=== PATIENT | female | born 1960 | race Caucasian/White ===

== ENCOUNTER → 2023-08-09 09:02 | Outpatient (REF) | payer OTHER, SELFPAY | LOC: HWRAD 09:02 | PROVIDERS: ATTENDING PHYSICIAN Internal Medicine | DX: R10.31 Right lower quadrant pain (principal) | CPT/HCPCS: 74177; Q9967 ==

== ENCOUNTER 2023-08-12 14:31 | Emergency (ER) | payer OTHER, SELFPAY ==
[2023-08-12 14:32] VITALS: BP 158/95
--- NOTE | 2023-08-12 14:54 | ED.GENMED ---
History of Present Illness
General
Chief Complaint: Abdominal Pain
Time Seen by Provider: 08/12/23 14:54
Travel History
Have you had any contact with someone who has COVID-19?: No
Do you have any symptoms of coronavirus? Fever > 100 degrees, chills, cough, shortness of breath, sore throat, loss of taste or smell, muscle aches, or headache?: No
History of Present Illness
History of Present Illness:
HPI: The patient presents with a general unwell feeling in her abdomen associate with constipation and some 'gurgling' at times. She had an outpatient CAT scan that showed 'nonobstructive cecal bascule'. This was ordered by PMD and images were
obtained 3 days ago. The PMD told her to come to the ER today. The patient did have a bowel movement last night and overall feels somewhat improved
EXAM:
GENERAL: Well appearing in no distress
HEENT: Moist oral mucosa
ABDOMEN: Soft with no peritoneal signs, no tenderness
NEUROLOGIC: Excellent strength all extremities, no coordination deficits
PSYCHIATRIC: Appropriate mental status, normal insight and judgement
EXTREMITIES: Nontender, no edema, moves all extremities equally
SKIN: No rash, no lesions
ED COURSE:
3 PM: I initially evaluated patient
NUMBER AND COMPLEXITY OF PROBLEMS ADDRESSED AT THE ENCOUNTER
� Chronic conditions affecting care: IBS, diverticulosis, has had lap elana in 2014, ovarian cysts
� Acute Exacerbation and/or Progression of Chronic Illness: This is an acute problem but is felt similar episodes in the past
� Differential Diagnosis includes: Constipation, diverticulitis, perforated viscus, nonspecific abdominal pain, viral syndrome
AMOUNT AND/OR COMPLEXITY OF DATA TO BE REVIEWED AND ANALYZED
� I performed an independent evaluation of and my interpretation is:
EKG:
CT: I reviewed CT imaging that was obtained from 3 days ago
X-rays:
Laboratory Studies:
Other:
� Review of other/old records: 3 days ago, the patient had a CAT scan of the abdomen and pelvis with IV contrast that showed 'mobile cecum and ileocecal junction located more superiorly in the right mid upper abdomen than on
previous exam performed 09/15/2020�the findings suggested nonobstructive cecal bascule constipation was also noted on CT imaging.
� Clinical information was obtained by an independent historian: None needed
� Prescriptions/Medications Considered but not given:
� Further testing considered but not performed:
RISK OF COMPLICATIONS AND/OR MORBIDITY OR MORTALITY OF PATIENT MANAGEMENT
� Social determinants of health affecting care: Lives at home
� Discussion with other providers: I discussed case with Dr. Klein given the findings on CT from 3 days ago. He personally reviewed CT imaging and based on the assessment here of the patient being very well-appearing we agreed
to have patient follow-up as an outpatient.
� Escalation of care including admission/observation vs risk of discharge considered: The patient is to follow-up with Dr. Klein as an outpatient. She is very well-appearing at time of discharge. I also encouraged use of
[id number] medications for constipation.
Past History
Past History
ED Past Medical History: Hypercholesterolemia and Other (IBS)
ED Past Surgical History: Cholecystectomy
Social History
Tobacco: Former smoker
Alcohol: None
Drug: None
Personal:
Living: with family
Phy Exam
Physical Exam
Physical Exam:
See HPI
Course
Vital Signs
Initial and Last Documented VS:
Initial Vital Signs
Temp Pulse Resp BP Pulse Ox
99.0 F 94 18 158/95 98
08/12/23 14:32 08/12/23 14:32 08/12/23 14:32 08/12/23 14:32 08/12/23 14:32
Last Documented Vital Signs
Temp Pulse Resp BP Pulse Ox
99.0 F 94 18 158/95 98
08/12/23 14:32 08/12/23 14:32 08/12/23 14:32 08/12/23 14:32 08/12/23 14:32
*Critical Care Note
Total Time (30-74mins, 75-104mins- exclusive of procedures): Not Applicable
ED Attending Note
-
Portions of this chart may have been created with voice recognition software.� Occasional wrong word or��sound alike� substitutions may have occurred due to the inherent limitations of voice recognition software.
Discharge Plan
Departure
Patient Disposition: Home (Routine Discharge)
Date of Disposition: 08/12/23
Time of Disposition: 16:06
Patient with high blood pressure during this ER visit?: Yes
Discharge Problem:
Constipation
Instructions: Constipation, Adult (DC), BLOOD PRESSURE
Prescriptions:
No Action
No Current Medications
0
Referrals:
Liban Woods, [Family Provider] -
Dane Klein MD [Active] - Follow up in 2-3 days
Activity Restrictions/Additional Instructions:
I recommend that you try [id number] medications for constipation. I reviewed the CT with Dr. Klein, he recommends that you follow-up with our office for further evaluation and management. Return here if worse.
Interventions
Interventions:
*Risk Screen - Suicide Last Done: 08/12/23 14:32
*General Assessment Last Done: 08/12/23 14:32
*Neglect/Abuse Screening Last Done: 08/12/23 14:32
*ED COVID-19 Vaccine History Last Done: 08/12/23 14:32
[2023-08-12 16:32] VITALS: BP 142/99
== END 2023-08-12 16:35 | disposition home or self-care (01) ==
LOC: EMR 14:31
PROVIDERS: EMERGENCY PHYSICIAN Emergency Medicine; FAMILY PHYSICIAN Internal Medicine
DX: K59.00 Constipation, unspecified (principal); K58.9 Irritable bowel syndrome, unspecified; E78.00 Pure hypercholesterolemia, unspecified; Z87.891 Personal history of nicotine dependence; Z90.49 Acquired absence of other specified parts of digestive tract
CPT/HCPCS: 99282

== ENCOUNTER → 2023-09-02 06:28 | Day surgery (SDC) | payer OTHER, SELFPAY | LOC: GI 06:28 | PROVIDERS: ATTENDING PHYSICIAN Surgery | DX: Z12.11 Encounter for screening for malignant neoplasm of colon (principal); K59.09 Other constipation; K57.30 Diverticulosis of large intestine without perforation or abscess without bleeding; K64.1 Second degree hemorrhoids; D12.0 Benign neoplasm of cecum | CPT/HCPCS: 45380; 88305 ==

== ENCOUNTER → 2025-04-27 14:55 | Outpatient (REF) | payer OTHER, SELFPAY | LOC: WDC 14:55 | PROVIDERS: ATTENDING PHYSICIAN Internal Medicine | DX: Z12.31 Encounter for screening mammogram for malignant neoplasm of breast (principal) | CPT/HCPCS: 77063; 77067 ==